=== PATIENT | female | born 1960 | race Caucasian/White ===

== ENCOUNTER 2021-11-23 11:29 | Emergency (ER) | payer MEDICAID | END 2021-11-23 13:10 | disposition other institution (70) | LOC: JP.ED 11:29 | DX: F10.10 Alcohol abuse, uncomplicated (principal); Z72.0 Tobacco use; Z79.899 Other long term (current) drug therapy; Z20.822 Contact with and (suspected) exposure to COVID-19 | CPT/HCPCS: 36415; 80305-QW; 80307; 81001; 99282; 99284; U0002 ==